=== PATIENT | male | born 1935 | race Caucasian/White ===

== ENCOUNTER → 2019-04-19 | Outpatient (CLI) | payer MEDICARE, OTHER ==
[~2019-04-19] MED LIST: ACE INHIBITOR; ARIP10 PO; ASPI81CH PO; ATOR10 PO; Aspir-Low81 MG PO; CHOL10002 PO; ERYT.5TO BOTHEYES; HCTZ PO; HYDCHL12.5 PO; LIPITOR; MULVITMIND PO; POLY500 PO; QUIN10 PO; QUINAPRIL PO; SULTRIDS PO
== END | disposition home or self-care (01) ==
LOC: LAB SHORT 17:14 → LAB EV 17:14
DX: L08.9 Local infection of the skin and subcutaneous tissue, unspecified (principal); L57.0 Actinic keratosis; L02.411 Cutaneous abscess of right axilla
CPT/HCPCS: 87070; 87077; 87147; 87186; 87205

== ENCOUNTER 2019-12-11 05:08 | Emergency (ER) | payer MEDICARE, OTHER ==
[~2019-12-11] VITALS: Ht 160 cm; Wt 53.5 kg
[2019-12-11 05:32] LABS: BASOPHILS ABSOLUTE AUTO 0.02 K/mm3 (0.00-0.23); BASOPHILS PERCENT AUTO 0 % (0-2); EOSINOPHILS ABSOLUTE AUTO 0.07 K/mm3 (0.00-0.68); EOSINOPHILS PERCENT AUTO 1 % (0-6); Hematocrit 38.2 % (37.0-53.0); IMMATURE GRAN ABSOLUTE AUTO 0.03 K/mm3 (0.00-0.10); IMMATURE GRAN PERCENT AUTO 0 % (0-1); LYMPHOCYTES ABSOLUTE AUTO 0.63 K/mm3 (0.84-5.20); LYMPHOCYTES PERCENT AUTO 8 % (21-46); MONOCYTES ABSOLUTE AUTO 1.25 K/mm3 (0.16-1.47); MONOCYTES PERCENT AUTO 15 % (4-13); Mean Corpuscular HGB 30.4 pg (26.0-34.0); Mean Corpuscular Volume 89 fL (80-100); Mean Platelet Volume 10.4 fL (9.1-12.4); NEUTROPHILS PERCENT AUTO 76 % (41-73); Platelet Count 159 K/mm3 (150-400); RDW Coefficient Variation 13.2 % (11.7-14.2); RDW Standard Deviation 43.1 fL (35.1-46.3); Red Blood Cell Count 4.28 M/mm3 (4.30-5.90)
[2019-12-11 05:52] LABS: Alanine Aminotransfer (ALT/SGP 25 U/L (12-78); Albumin, Blood 2.9 g/dL (3.4-5.0); Alk Phos 62 U/L (50-136); Anion Gap 8 mmol/L (6-16); Aspartate Aminotrans (AST/SGOT 30 U/L (12-37); Bilirubin, Total 0.7 mg/dL (0.1-1.0); Blood Urea Nitrogen 18 mg/dL (8-24); Bun/Creatinine Ratio 24.4 (12.0-20.0); CO2, Blood 24 mmol/L (21-32); Calcium, Blood 7.4 mg/dL (8.5-10.1); Chloride, Blood 99 mmol/L (98-108); Creatinine, Blood 0.74 mg/dL (0.60-1.20); Glomerular Filtration Rate >60 (60-); Glucose, Blood 81 mg/dL (70-99); Potassium, Blood 3.9 mmol/L (3.5-5.5); Sodium, Blood 131 mmol/L (136-145); Total Protein, Blood 5.9 g/dL (6.4-8.2); Troponin I <0.015 ng/mL (0.000-0.040)
[2019-12-11] MEDS ORDERED: AMLO5 PO (06:07)
== END 2019-12-11 08:10 | disposition home or self-care (01) ==
LOC: ER 05:08
PROVIDERS: Emergency Medicine
DX: R55 Syncope and collapse (principal); S00.83XA Contusion of other part of head, initial encounter; W18.30XA Fall on same level, unspecified, initial encounter; Z88.8 Allergy status to other drugs, medicaments and biological substances; Z88.2 Allergy status to sulfonamides; Z79.899 Other long term (current) drug therapy; Z79.82 Long term (current) use of aspirin; F32.9 Major depressive disorder, single episode, unspecified; I10 Essential (primary) hypertension; Y92.002 Bathroom of unspecified non-institutional (private) residence as the place of occurrence of the external cause
CPT/HCPCS: 70450; 71046; 80053; 83880; 84484; 85025; 93005; 93010; 99285-25

== ENCOUNTER 2020-01-11 07:37 | Emergency (ER) | payer MEDICARE, OTHER ==
[~2020-01-11] VITALS: Ht 175.3 cm; Wt 68.0 kg
[~2020-01-11 07:37] MED LIST changes: +AMLO5 PO
[2020-01-11] MEDS ORDERED: Aspirin EC81 MG PO (07:46)
[2020-01-11] MEDS ORDERED: QUIN10 PO (07:46)
== END 2020-01-11 09:52 | disposition home or self-care (01) ==
LOC: ER 07:37
DX: S80.01XA Contusion of right knee, initial encounter (principal); Z88.2 Allergy status to sulfonamides; W18.30XA Fall on same level, unspecified, initial encounter
CPT/HCPCS: 29505; 73564; 99283-25

== ENCOUNTER 2020-02-02 03:44 | Emergency (ER) | payer MEDICARE, OTHER ==
[~2020-02-02] VITALS: Ht 160 cm; Wt 532.5 kg
[~2020-02-02 03:44] MED LIST changes: -AMLO5 PO; +Accupril20 MG PO; +Amlodipine Bes2.5 MG PO; +Aspirin EC81 MG PO; -MULVITMIND PO
[2020-02-02 05:07] LABS: BASOPHILS ABSOLUTE AUTO 0.03 K/mm3 (0.00-0.23); BASOPHILS PERCENT AUTO 0 % (0-2); EOSINOPHILS ABSOLUTE AUTO 0.03 K/mm3 (0.00-0.68); EOSINOPHILS PERCENT AUTO 0 % (0-6); Hematocrit 38.1 % (37.0-53.0); Hemoglobin 13.2 g/dL (13.5-17.5); IMMATURE GRAN ABSOLUTE AUTO 0.03 K/mm3 (0.00-0.10); IMMATURE GRAN PERCENT AUTO 0 % (0-1); LYMPHOCYTES ABSOLUTE AUTO 0.61 K/mm3 (0.84-5.20); LYMPHOCYTES PERCENT AUTO 7 % (21-46); MONOCYTES ABSOLUTE AUTO 1.08 K/mm3 (0.16-1.47); MONOCYTES PERCENT AUTO 12 % (4-13); Mean Corpuscular HGB 30.8 pg (26.0-34.0); Mean Corpuscular HGB Conc 34.6 g/dL (31.5-36.5); Mean Corpuscular Volume 89 fL (80-100); Mean Platelet Volume 10.2 fL (9.1-12.4); NEUTROPHILS ABSOLUTE AUTO 7.59 K/mm3 (1.96-9.15); NEUTROPHILS PERCENT AUTO 81 % (41-73); Platelet Count 183 K/mm3 (150-400); RDW Coefficient Variation 13.5 % (11.7-14.2); RDW Standard Deviation 44.4 fL (35.1-46.3); Red Blood Cell Count 4.28 M/mm3 (4.30-5.90); White Blood Cell Count 9.37 K/mm3 (4.00-11.30)
[2020-02-02 05:18] LABS: Alanine Aminotransfer (ALT/SGP 29 U/L (12-78); Albumin, Blood 3.2 g/dL (3.4-5.0); Albumin/Globulin Ratio 1.1 (0.8-1.8); Alk Phos 53 U/L (50-136); Anion Gap 7 mmol/L (6-16); Aspartate Aminotrans (AST/SGOT 26 U/L (12-37); Bilirubin, Total 0.4 mg/dL (0.1-1.0); Blood Urea Nitrogen 26 mg/dL (8-24); Bun/Creatinine Ratio 31.7 (12.0-20.0); CO2, Blood 28 mmol/L (21-32); Calcium, Blood 8.2 mg/dL (8.5-10.1); Chloride, Blood 94 mmol/L (98-108); Creatinine, Blood 0.82 mg/dL (0.60-1.20); Globulin, Blood 2.9 g/dL (2.2-4.0); Glomerular Filtration Rate >60 (60-); Glucose, Blood 92 mg/dL (70-99); Sodium, Blood 129 mmol/L (136-145); Total Protein, Blood 6.1 g/dL (6.4-8.2); Troponin I <0.015 ng/mL (0.000-0.040)
[2020-02-02] MEDS ORDERED: Zantac150 MG PO (14:04)
[2020-02-02] MEDS ORDERED: THERA1 EACH PO (14:19)
== END 2020-02-02 10:40 | disposition home or self-care (01) ==
LOC: ER 03:44 → ERHOLD 03:45 → ER 03:45
PROVIDERS: Emergency Medicine
DX: R55 Syncope and collapse (principal); S06.9X9A Unspecified intracranial injury with loss of consciousness of unspecified duration, initial encounter; S00.03XA Contusion of scalp, initial encounter; Z23 Encounter for immunization; Z79.899 Other long term (current) drug therapy; Z79.82 Long term (current) use of aspirin; W18.30XA Fall on same level, unspecified, initial encounter
CPT/HCPCS: 70450; 71045; 72125; 73562-RT; 80053; 83690; 84484; 85025; 90686; 93005; 93010; 93971; 96360; 96361; 99284-25; J1650; J7030

== ENCOUNTER 2020-02-03 02:22 | Emergency (ER) | payer MEDICARE, OTHER ==
[~2020-02-03] VITALS: Ht 160 cm; Wt 53.1 kg
[~2020-02-03 02:22] MED LIST changes: +THERA1 EACH PO; +Zantac150 MG PO
[2020-02-03 05:18] LABS: BASOPHILS ABSOLUTE AUTO 0.01 K/mm3 (0.00-0.23); BASOPHILS PERCENT AUTO 0 % (0-2); EOSINOPHILS ABSOLUTE AUTO 0.01 K/mm3 (0.00-0.68); EOSINOPHILS PERCENT AUTO 0 % (0-6); Hematocrit 32.8 % (37.0-53.0); Hemoglobin 11.5 g/dL (13.5-17.5); IMMATURE GRAN ABSOLUTE AUTO 0.03 K/mm3 (0.00-0.10); IMMATURE GRAN PERCENT AUTO 0 % (0-1); LYMPHOCYTES ABSOLUTE AUTO 0.46 K/mm3 (0.84-5.20); LYMPHOCYTES PERCENT AUTO 6 % (21-46); MONOCYTES PERCENT AUTO 12 % (4-13); Mean Corpuscular HGB 30.7 pg (26.0-34.0); Mean Corpuscular HGB Conc 35.1 g/dL (31.5-36.5); Mean Corpuscular Volume 88 fL (80-100); Mean Platelet Volume 9.8 fL (9.1-12.4); NEUTROPHILS ABSOLUTE AUTO 6.75 K/mm3 (1.96-9.15); NEUTROPHILS PERCENT AUTO 82 % (41-73); Platelet Count 152 K/mm3 (150-400); RDW Coefficient Variation 13.3 % (11.7-14.2); RDW Standard Deviation 42.6 fL (35.1-46.3); Red Blood Cell Count 3.75 M/mm3 (4.30-5.90); White Blood Cell Count 8.26 K/mm3 (4.00-11.30)
[2020-02-03 05:36] LABS: Alanine Aminotransfer (ALT/SGP 28 U/L (12-78); Albumin/Globulin Ratio 1.1 (0.8-1.8); Alk Phos 54 U/L (50-136); Anion Gap 7 mmol/L (6-16); Aspartate Aminotrans (AST/SGOT 35 U/L (12-37); Bilirubin, Total 0.9 mg/dL (0.1-1.0); Blood Urea Nitrogen 15 mg/dL (8-24); CO2, Blood 27 mmol/L (21-32); Calcium, Blood 7.9 mg/dL (8.5-10.1); Chloride, Blood 95 mmol/L (98-108); Creatinine, Blood 0.68 mg/dL (0.60-1.20); Globulin, Blood 2.7 g/dL (2.2-4.0); Glomerular Filtration Rate >60 (60-); Glucose, Blood 90 mg/dL (70-99); Potassium, Blood 3.8 mmol/L (3.5-5.5); Sodium, Blood 129 mmol/L (136-145); Total Protein, Blood 5.7 g/dL (6.4-8.2)
--- NOTE | 2020-02-03 08:35 | NUR ---
ED Palliative Care Consult Spoke with Dr Ross and discussed case. Dr Ross reports Pt has multiple falls recently and would benefit from home health. Plan is to discharge back home. Arrived to Pt's room and Caremanager Isa assessing Pt. Pt reports living at home alone and has someone that comes in to help him clean the house. Pt reports having multiple falls recently. Pt reports having multiple falls in the same day. Pt is agreeable with receiving home health. Isa will arrange this service for Pt. Palliative Care will remain available.
== END 2020-02-03 09:27 | disposition home or self-care (01) ==
LOC: ER 02:22
PROVIDERS: Emergency Medicine
DX: S82.831A Other fracture of upper and lower end of right fibula, initial encounter for closed fracture (principal); W18.30XA Fall on same level, unspecified, initial encounter; Z88.8 Allergy status to other drugs, medicaments and biological substances; Z88.2 Allergy status to sulfonamides; Z79.899 Other long term (current) drug therapy; Z79.82 Long term (current) use of aspirin; I10 Essential (primary) hypertension; E78.5 Hyperlipidemia, unspecified
CPT/HCPCS: 73562-RT; 80053; 85025; 99284-25

== ENCOUNTER 2020-02-04 16:13 | Emergency (ER) | payer MEDICARE, OTHER ==
[~2020-02-04] VITALS: Ht 160 cm; Wt 49.9 kg
[2020-02-04 16:48] LABS: Source, Urine Clean Catch
[2020-02-04 16:51] LABS: Bilirubin, Urine Neg (Neg); Blood, Urine Neg (Neg); Glucose Qualitative, Urine Neg (Neg); Ketones, Urine Neg (Neg); Leukocyte Esterase, Urine Neg (Neg); Nitrite, Urine Neg (Neg); Protein, Urine Neg (Neg); Specific Gravity, Urine 1.015 (1.003-1.022); Urobilinogen, Urine NORM (Normal); pH, Urine 6.5 (5.0-8.0)
[2020-02-04 16:54] LABS: Appearance, Urine Clear (Clear); Color, Urine Yellow (P-Yellow)
== END 2020-02-04 19:34 | disposition home or self-care (01) ==
LOC: ER 16:13
PROVIDERS: Physician Assistant
DX: R53.1 Weakness (principal); R29.6 Repeated falls; I10 Essential (primary) hypertension; E78.5 Hyperlipidemia, unspecified
CPT/HCPCS: 81003; 99284

== ENCOUNTER 2020-02-15 09:12 | Day surgery (SDC) | payer MEDICARE, OTHER ==
[~2020-02-15] VITALS: Ht 160 cm; Wt 50.0 kg
--- NOTE | 2020-02-15 14:37 | NUR ---
02/15/20 1437 Geovanna Miles REPORT RECIEVED FROM NURSE HARDY AT 1400. PT COMPLAINED OF THE URGE TO URINATE. RN ASSISTED PT TO STAND TO ATTEMPT TO VOID. PT UNABLE TO VOID. DR DURBIN NOTIFIED. DR DURBIN REQUESTED THAT RN CALL DR MCCRACKEN TO OBTAIN ORDER FOR URINARY CATHETER. DR MCCRACKEN REQUESTED BACK CATHETER TO BE PLACED HERE AT THE [facility]. DR MCCRACKEN REQUESTED PT GO HOME WITH CATHETER AND FOLLOW UP WITH PCP. CATHETER PLACED BY RN. 900MLS OF CLEAR YELLOW URINE DRAINED. PT STATES NOW HE IS MUCH MORE COMFORTABLE. VSS. REPORT GIVEN TO [facility].SKL AT 1435.
== END 2020-02-15 14:55 | disposition home or self-care (01) ==
LOC: ORSCSDS 09:12
PROVIDERS: Orthopaedic Surgery
PROC: 0LQL0ZZ Repair Right Upper Leg Tendon, Open Approach (ICD-10-PCS; principal; 2020-02-15 10:15)
DX: S76.121A Laceration of right quadriceps muscle, fascia and tendon, initial encounter (principal); E78.5 Hyperlipidemia, unspecified; I10 Essential (primary) hypertension; Z79.82 Long term (current) use of aspirin; Z79.899 Other long term (current) drug therapy
CPT/HCPCS: C1713; J0330; J0690; J1100; J2405; J2704; J2795; J3010; J7120

== ENCOUNTER 2020-10-06 17:33 | Inpatient (IN) | payer MEDICARE, OTHER ==
[~2020-10-06] VITALS: Ht 170.2 cm; Wt 58.0 kg
[2020-10-06 18:32] LABS: BASOPHILS ABSOLUTE AUTO 0.03 K/mm3 (0.00-0.23); BASOPHILS PERCENT AUTO 1 % (0-2); EOSINOPHILS ABSOLUTE AUTO 0.17 K/mm3 (0.00-0.68); EOSINOPHILS PERCENT AUTO 3 % (0-6); Hematocrit 41.3 % (37.0-53.0); Hemoglobin 14.1 g/dL (13.5-17.5); IMMATURE GRAN ABSOLUTE AUTO 0.02 K/mm3 (0.00-0.10); IMMATURE GRAN PERCENT AUTO 0 % (0-1); LYMPHOCYTES ABSOLUTE AUTO 1.47 K/mm3 (0.84-5.20); LYMPHOCYTES PERCENT AUTO 24 % (21-46); MONOCYTES ABSOLUTE AUTO 1.03 K/mm3 (0.16-1.47); MONOCYTES PERCENT AUTO 17 % (4-13); Mean Corpuscular HGB 28.3 pg (26.0-34.0); Mean Corpuscular HGB Conc 34.1 g/dL (31.5-36.5); Mean Corpuscular Volume 83 fL (80-100); Mean Platelet Volume 9.5 fL (9.1-12.4); NEUTROPHILS ABSOLUTE AUTO 3.54 K/mm3 (1.96-9.15); NEUTROPHILS PERCENT AUTO 57 % (41-73); Platelet Count 194 K/mm3 (150-400); RDW Standard Deviation 42.4 fL (35.1-46.3); Red Blood Cell Count 4.98 M/mm3 (4.30-5.90); White Blood Cell Count 6.26 K/mm3 (4.00-11.30)
[2020-10-06 19:03] LABS: Alanine Aminotransfer (ALT/SGP 19 U/L (12-78); Albumin, Blood 3.5 g/dL (3.4-5.0); Albumin/Globulin Ratio 1.1 (0.8-1.8); Alk Phos 75 U/L (50-136); Anion Gap 10 mmol/L (6-16); Aspartate Aminotrans (AST/SGOT 20 U/L (12-37); Bilirubin, Total 0.3 mg/dL (0.1-1.0); Blood Urea Nitrogen 16 mg/dL (8-24); Bun/Creatinine Ratio 20.6 (12.0-20.0); CO2, Blood 23 mmol/L (21-32); Calcium, Blood 8.7 mg/dL (8.5-10.1); Chloride, Blood 97 mmol/L (98-108); Creatinine, Blood 0.78 mg/dL (0.60-1.20); Globulin, Blood 3.2 g/dL (2.2-4.0); Glomerular Filtration Rate >60 (60-); Glucose, Blood 115 mg/dL (70-99); Potassium, Blood 4.5 mmol/L (3.5-5.5); Sodium, Blood 130 mmol/L (136-145); Total Protein, Blood 6.7 g/dL (6.4-8.2); Troponin I <0.015 ng/mL (0.000-0.040)
[2020-10-07 04:21] LABS: BASOPHILS ABSOLUTE AUTO 0.02 K/mm3 (0.00-0.23); BASOPHILS PERCENT AUTO 0 % (0-2); EOSINOPHILS PERCENT AUTO 1 % (0-6); Hematocrit 36.7 % (37.0-53.0); Hemoglobin 12.8 g/dL (13.5-17.5); IMMATURE GRAN ABSOLUTE AUTO 0.03 K/mm3 (0.00-0.10); IMMATURE GRAN PERCENT AUTO 0 % (0-1); LYMPHOCYTES ABSOLUTE AUTO 1.02 K/mm3 (0.84-5.20); LYMPHOCYTES PERCENT AUTO 13 % (21-46); MONOCYTES ABSOLUTE AUTO 1.24 K/mm3 (0.16-1.47); MONOCYTES PERCENT AUTO 15 % (4-13); Mean Corpuscular HGB 28.7 pg (26.0-34.0); Mean Corpuscular HGB Conc 34.9 g/dL (31.5-36.5); Mean Corpuscular Volume 82 fL (80-100); Mean Platelet Volume 9.6 fL (9.1-12.4); NEUTROPHILS ABSOLUTE AUTO 5.67 K/mm3 (1.96-9.15); NEUTROPHILS PERCENT AUTO 70 % (41-73); Platelet Count 189 K/mm3 (150-400); RDW Standard Deviation 41.9 fL (35.1-46.3); Red Blood Cell Count 4.46 M/mm3 (4.30-5.90); White Blood Cell Count 8.08 K/mm3 (4.00-11.30)
[2020-10-07 04:49] LABS: Alanine Aminotransfer (ALT/SGP 14 U/L (12-78); Albumin, Blood 3.2 g/dL (3.4-5.0); Albumin/Globulin Ratio 1.1 (0.8-1.8); Alk Phos 70 U/L (50-136); Anion Gap 5 mmol/L (6-16); Aspartate Aminotrans (AST/SGOT 16 U/L (12-37); Bilirubin, Total 0.6 mg/dL (0.1-1.0); Blood Urea Nitrogen 10 mg/dL (8-24); Bun/Creatinine Ratio 14.2 (12.0-20.0); CO2, Blood 27 mmol/L (21-32); Calcium, Blood 8.5 mg/dL (8.5-10.1); Chloride, Blood 100 mmol/L (98-108); Creatinine, Blood 0.71 mg/dL (0.60-1.20); Globulin, Blood 2.8 g/dL (2.2-4.0); Glomerular Filtration Rate >60 (60-); Glucose, Blood 88 mg/dL (70-99); Sodium, Blood 132 mmol/L (136-145)
--- NOTE | 2020-10-07 04:59 | NUR ---
SUMMARY PT IS A&O X3, ON RA, NS INFUSING @ 100ML/HR PER EMAR. RESP UNLAOBORED, VSS. T HAS BEEN RESTING QUIETLY WITH NO COMPLAINTS OF PAIN SINCE ADMISSION, RIGHT KNEE IS SLIGHTLY RED, KNEE CAP APPEARS TO BE RAISED, SMALL RED "SCAB" NOTED, NO LEAKING OF FLUID OR BLEEDING NOTED, PT DENIES N/T TO LEG, HE IS ABLE TO MOVE WNL. HAS BEEN NOTIFIED BY THE ED PHYSICIAN FOR CONSULT. PT'S SISTER LEXIE HAS BEEN UPDATED ON HIS CONDITION THIS AM. PT IS RESTING AT THIS TIME, CALL LIGHT IN REACH, TM
--- NOTE | 2020-10-07 09:59 | NUR ---
REPORT TO KARO NARANJO ON SURGICAL FLOOR TO ASSUME CARE FOR IN HOUSE TRANSFER.
--- NOTE | 2020-10-07 10:21 | NUR ---
ASSUMED CARE OF PATIENT AT APROX 1015 FROM PCU. PT R KNEE WITH SMALL AMT REDNESS AND WHAT APPEARS/PT STATES TO BE A PUNCTURE HOLE IN R KNEE. PT DENIES PAIN AT THIS TIME.
[2020-10-07 11:20] LABS: Source, Urine Clean Catch
[2020-10-07 11:23] LABS: Appearance, Urine Clear (Clear); Bilirubin, Urine Neg (Neg); Blood, Urine Neg (Neg); Color, Urine Yellow (P-Yellow); Glucose Qualitative, Urine Neg (Neg); Ketones, Urine Neg (Neg); Leukocyte Esterase, Urine Neg (Neg); Nitrite, Urine Neg (Neg); Protein, Urine Neg (Neg); Urobilinogen, Urine NORM (Normal)
--- NOTE | 2020-10-08 04:55 | NUR ---
SHIFT SUMMARY PT HAS BEEN ALERT, FORGETFUL AT TIMES. HAS DENIED DIZZINESS/LIGHTHEADEDNESS OVERNIGHT. HAS BEEN UP TO BSC MULTIPLE TIMES AND HAD MULT SMALL BM'S. VOIDING USING URINAL. 2X ASSIST WITH FWW TO GET OUT OF BED. PLAN IS TO HAVE SURGERY ON R KNEE TODAY. PT HAS BEEN NPO SINCE MIDNIGHT. PT RESTING IN BED AT THIS TIME WITH CALL LIGHT IN PLACE.
--- NOTE | 2020-10-08 11:14 | NUR ---
PT BACK FROM PACU. DENIES PAIN. DENIES N&V, SAVAGE CLEAR LIQUIDS. S/P HWR & I.D. SURGICAL DRESSING/JUANA WRAP CDI; WBAT. STAND/PIVOT W/FWW AND MIN ASSIST TO CHAIR. VOIDING WELL, URINAL.
--- NOTE | 2020-10-08 15:30 | NUR ---
SHIFT SUMMARY PT A&OX4, VSS, S/P HW REPAIR & I&D, SURGICAL DRESSING/JUANA WRAP CDI, WBAT, DENIES N&T. PAIN AT TOLERABLE LEVEL. SAVAGE PO REG DIET, DENIES N&V. STAND PIVOT WITH FWW & GB, MOD ASSIST, TO CHAIR; SAT IN CHAIR FOR COUPLE HOURS, PREFERS TO BE IN BED SO HE CAN LAY BACK AND REPOSITION SELF EASILY. VOIDING WELL, USES URINAL W/ASSIST TO STAND. WILL REPORT TO ONCOMING NOC RN.
--- NOTE | 2020-10-09 05:55 | NUR ---
SHIFT SUMMARY PT A/O X3; FORGETFUL AT TIMES. BED ALARM ON. PT USING FWW WHEN UP. TOLERATING PO INTAKE AND VOIDING. PAIN MANAGED WITH TYLENOL PER ORDERS. JUANA WRAP TO R KNEE CDI, PULSES STRONG IN ALL EXT. PT USING TRAPEZE TO REPOSITION; REPOSITIONS SELF WELL IN BED. PT RESTING AT THIS TIME WITH CALL LIGHT IN REACH.
--- NOTE | 2020-10-09 09:47 | NUR ---
Patient gave verbal permission to student nurse Arpan Roach to provide care on 10/09/20
[2020-10-09] MEDS ORDERED: ACET500 PO (12:33)
[2020-10-09] MEDS ORDERED: DOCUZEN 8.6-501 EACH PO (12:35)
--- NOTE | 2020-10-09 14:45 | NUR ---
DISCHARGE ESCORTED OUT VIA TRANSPORTATION W/ WC. FORGETFUL BUT PLEASANT. DENIES PAIN. WOUND CARE PREFORMED BY INNA CRISTINA PRIOR TO DC.
--- NOTE | 2020-10-09 15:14 | NUR ---
10/09/20 1514 Chanelle Mccoy VERIFICATIONS: EDIT CHART.
== END 2020-10-09 14:50 | disposition home or self-care (01) | DRG 497 ==
LOC: ER 17:33 → PCU 19:50 → SURS 19:50 → ER 19:50 → PCU 21:30 → ER 22:12 → PCU 22:15 → SURS 10-07 10:15 → PCU 10-07 10:15 → SURS 10-08 14:39 → PCU 10-08 14:39 → SURS 10-09 14:50
PROVIDERS: Orthopaedic Surgery; Physician Assistant; ADMIT Internal Medicine
PROC: 0QPD04Z Removal of Internal Fixation Device from Right Patella, Open Approach (ICD-10-PCS; principal; 2020-10-08 09:00)
DX: T84.498A Other mechanical complication of other internal orthopedic devices, implants and grafts, initial encounter (principal); E86.0 Dehydration; I10 Essential (primary) hypertension; E78.5 Hyperlipidemia, unspecified; R00.1 Bradycardia, unspecified; Z85.21 Personal history of malignant neoplasm of larynx; Z79.82 Long term (current) use of aspirin
CPT/HCPCS: 36415; 70450; 71046; 73562-RT; 80053; 81003; 82947; 84484; 85025; 93005; 93010; 93306; 94760; 97110; 97116; 97161; 97530; 99285-25; A9270; J0690; J1100; J2250; J2370; J2405; J2704; J3010; J7030; U0004

== ENCOUNTER 2020-10-13 13:02 | Emergency (ER) | payer MEDICARE, OTHER ==
[~2020-10-13] VITALS: Ht 160 cm; Wt 56.7 kg
[~2020-10-13 13:02] MED LIST changes: +ACET500 PO; +DOCUZEN 8.6-501 EACH PO
== END 2020-10-13 14:23 | disposition home or self-care (01) ==
LOC: ER 13:02
DX: T81.33XA Disruption of traumatic injury wound repair, initial encounter (principal); I10 Essential (primary) hypertension; E78.5 Hyperlipidemia, unspecified; Z88.8 Allergy status to other drugs, medicaments and biological substances; Z88.7 Allergy status to serum and vaccine; Z88.2 Allergy status to sulfonamides; Z79.82 Long term (current) use of aspirin; Z79.899 Other long term (current) drug therapy; W20.8XXA Other cause of strike by thrown, projected or falling object, initial encounter; Y84.8 Other medical procedures as the cause of abnormal reaction of the patient, or of later complication, without mention of misadventure at the time of the procedure
CPT/HCPCS: 99283

== ENCOUNTER 2020-10-16 16:50 | Observation (INO) | payer MEDICARE, OTHER ==
[~2020-10-16] VITALS: Ht 160 cm; Wt 51.8 kg
[2020-10-16 17:24] LABS: BASOPHILS ABSOLUTE AUTO 0.05 K/mm3 (0.00-0.23); BASOPHILS PERCENT AUTO 1 % (0-2); EOSINOPHILS ABSOLUTE AUTO 0.23 K/mm3 (0.00-0.68); EOSINOPHILS PERCENT AUTO 2 % (0-6); Hematocrit 37.5 % (37.0-53.0); Hemoglobin 13.4 g/dL (13.5-17.5); IMMATURE GRAN ABSOLUTE AUTO 0.08 K/mm3 (0.00-0.10); IMMATURE GRAN PERCENT AUTO 1 % (0-1); LYMPHOCYTES ABSOLUTE AUTO 1.15 K/mm3 (0.84-5.20); LYMPHOCYTES PERCENT AUTO 12 % (21-46); MONOCYTES ABSOLUTE AUTO 1.55 K/mm3 (0.16-1.47); MONOCYTES PERCENT AUTO 17 % (4-13); Mean Corpuscular HGB 28.9 pg (26.0-34.0); Mean Corpuscular HGB Conc 35.7 g/dL (31.5-36.5); Mean Corpuscular Volume 81 fL (80-100); Mean Platelet Volume 9.3 fL (9.1-12.4); NEUTROPHILS ABSOLUTE AUTO 6.36 K/mm3 (1.96-9.15); NEUTROPHILS PERCENT AUTO 68 % (41-73); Platelet Count 275 K/mm3 (150-400); RDW Coefficient Variation 13.5 % (11.7-14.2); RDW Standard Deviation 39.7 fL (35.1-46.3); Red Blood Cell Count 4.64 M/mm3 (4.30-5.90); White Blood Cell Count 9.42 K/mm3 (4.00-11.30)
[2020-10-16 17:29] LABS: Source, Urine Clean Catch
[2020-10-16 17:45] LABS: Appearance, Urine Clear (Clear); Bilirubin, Urine Neg (Neg); Blood, Urine Neg (Neg); Color, Urine Yellow (P-Yellow); Glucose Qualitative, Urine Neg (Neg); Ketones, Urine Neg (Neg); Leukocyte Esterase, Urine Neg (Neg); Nitrite, Urine Neg (Neg); Protein, Urine Neg (Neg); Urobilinogen, Urine NORM (Normal)
[2020-10-16 17:55] LABS: Alanine Aminotransfer (ALT/SGP 26 U/L (12-78); Albumin, Blood 3.3 g/dL (3.4-5.0); Alk Phos 75 U/L (50-136); Anion Gap 7 mmol/L (6-16); Aspartate Aminotrans (AST/SGOT 27 U/L (12-37); Bilirubin, Total 0.6 mg/dL (0.1-1.0); Blood Urea Nitrogen 10 mg/dL (8-24); Bun/Creatinine Ratio 14.1 (12.0-20.0); CO2, Blood 28 mmol/L (21-32); Calcium, Blood 8.6 mg/dL (8.5-10.1); Chloride, Blood 87 mmol/L (98-108); Creatinine, Blood 0.71 mg/dL (0.60-1.20); Globulin, Blood 3.3 g/dL (2.2-4.0); Glomerular Filtration Rate >60 (60-); Glucose, Blood 93 mg/dL (70-99); Potassium, Blood 4.9 mmol/L (3.5-5.5); Sodium, Blood 122 mmol/L (136-145); Total Protein, Blood 6.6 g/dL (6.4-8.2); Troponin I <0.015 ng/mL (0.000-0.040)
[2020-10-16] MEDS ORDERED: CARVEDILOL12.5 MG PO (18:45)
[2020-10-16] MEDS ORDERED: ATOR10 PO (18:45)
[2020-10-16] MEDS ORDERED: ASPI325EC PO (18:46)
[2020-10-16] MEDS ORDERED: DOC250 PO (18:46)
[2020-10-16] MEDS ORDERED: Quinapril HCl20 MG PO (18:46)
[2020-10-16] MEDS ORDERED: METAMUCIL POWD575 GM PO (18:47)
[2020-10-16 20:20] LABS: Anion Gap 7 mmol/L (6-16); Blood Urea Nitrogen 9 mg/dL (8-24); Bun/Creatinine Ratio 13.4 (12.0-20.0); CO2, Blood 28 mmol/L (21-32); Calcium, Blood 8.3 mg/dL (8.5-10.1); Chloride, Blood 91 mmol/L (98-108); Creatinine, Blood 0.67 mg/dL (0.60-1.20); Glomerular Filtration Rate >60 (60-); Glucose, Blood 88 mg/dL (70-99); Potassium, Blood 4.2 mmol/L (3.5-5.5); Sodium, Blood 126 mmol/L (136-145)
[2020-10-17 05:30] LABS: BASOPHILS ABSOLUTE AUTO 0.04 K/mm3 (0.00-0.23); BASOPHILS PERCENT AUTO 0 % (0-2); EOSINOPHILS ABSOLUTE AUTO 0.21 K/mm3 (0.00-0.68); EOSINOPHILS PERCENT AUTO 2 % (0-6); Hemoglobin 12.3 g/dL (13.5-17.5); IMMATURE GRAN ABSOLUTE AUTO 0.06 K/mm3 (0.00-0.10); IMMATURE GRAN PERCENT AUTO 1 % (0-1); LYMPHOCYTES ABSOLUTE AUTO 1.08 K/mm3 (0.84-5.20); LYMPHOCYTES PERCENT AUTO 12 % (21-46); MONOCYTES ABSOLUTE AUTO 1.53 K/mm3 (0.16-1.47); MONOCYTES PERCENT AUTO 16 % (4-13); Mean Corpuscular HGB 28.4 pg (26.0-34.0); Mean Corpuscular HGB Conc 35.1 g/dL (31.5-36.5); Mean Corpuscular Volume 81 fL (80-100); Mean Platelet Volume 9.7 fL (9.1-12.4); NEUTROPHILS ABSOLUTE AUTO 6.39 K/mm3 (1.96-9.15); NEUTROPHILS PERCENT AUTO 69 % (41-73); Platelet Count 253 K/mm3 (150-400); RDW Coefficient Variation 13.4 % (11.7-14.2); RDW Standard Deviation 39.9 fL (35.1-46.3); Red Blood Cell Count 4.33 M/mm3 (4.30-5.90); White Blood Cell Count 9.31 K/mm3 (4.00-11.30)
[2020-10-17 06:08] LABS: Alanine Aminotransfer (ALT/SGP 24 U/L (12-78); Albumin, Blood 2.9 g/dL (3.4-5.0); Alk Phos 69 U/L (50-136); Anion Gap 7 mmol/L (6-16); Aspartate Aminotrans (AST/SGOT 29 U/L (12-37); Bilirubin, Total 0.7 mg/dL (0.1-1.0); Blood Urea Nitrogen 8 mg/dL (8-24); CO2, Blood 24 mmol/L (21-32); Calcium, Blood 8.2 mg/dL (8.5-10.1); Chloride, Blood 95 mmol/L (98-108); Creatinine, Blood 0.62 mg/dL (0.60-1.20); Glomerular Filtration Rate >60 (60-); Glucose, Blood 87 mg/dL (70-99); Potassium, Blood 4.1 mmol/L (3.5-5.5); Sodium, Blood 126 mmol/L (136-145); Total Protein, Blood 5.9 g/dL (6.4-8.2)
--- NOTE | 2020-10-17 06:21 | NUR ---
SHIFT SUMMARY- PT. NEW ADMIT FROM ED. ALERT W/INTERMITTENT CONFUSION. PT. RESTED MOST OF THE NIGHT, NO APPARENT DISTRESS NOTED. DENIED ANY NEEDS DURING THE NIGHT AND NO COMPLAINTS OF PAIN. PIC TAKEN OF WOUND TO RT KNEE AND COVERED WITH MEPILEX, PT. TOLERATED WELL. VSS. CALL LIGHT WITHIN REACH, SIDE RAILS UPX2, AND BED ALARM ON FOR SAFETY. WILL CONT TO MONITOR.
[2020-10-17 11:53] LABS: Anion Gap 5 mmol/L (6-16); Blood Urea Nitrogen 7 mg/dL (8-24); CO2, Blood 28 mmol/L (21-32); Calcium, Blood 7.8 mg/dL (8.5-10.1); Chloride, Blood 94 mmol/L (98-108); Creatinine, Blood 0.63 mg/dL (0.60-1.20); Glomerular Filtration Rate >60 (60-); Glucose, Blood 119 mg/dL (70-99); Potassium, Blood 3.7 mmol/L (3.5-5.5); Sodium, Blood 127 mmol/L (136-145)
[2020-10-17 14:25] LABS: Influenza A, PCR Negative (NEGATIVE); Influenza B, PCR Negative (NEGATIVE); Resp Syncytial Virus, PCR Negative (NEGATIVE); SARS-Cov-2 (COVID-19) PCR, MMC Negative (NEGATIVE)
--- NOTE | 2020-10-17 16:19 | NUR ---
DISCHARGE DR TA IN TO SEE PT THIS AM, STATE OK FOR D/C HOME TO [facility] TODAY. STATE PT HAS CHR LOW NA+, ORDER 1500ML FREE WATER RESTRICTION @ HOME. CONTACTED NURSE @ [facility] FOR REPORT & NEED TO ENCOURAGE FR. EDUCATED PT. ORDER PT/OT [facility], RESULTS SENT TO [facility] R/T POSSIBLE NEED FOR HIGHER LEVEL OF CARE. COVID19 NEGATIVE. IV D/C INTACT. WOUND CARE TO R KNEE PROVIDED. PT WILL HAVE [facility] FOLLOW. CREDIT CONTROLLER ARRANGE W/C VAN TRANSPORT. PT IS PLEASANT, APPRECIATIVE HOWEVER VERY FORGETFUL.
== END 2020-10-17 15:53 | disposition home health service (06) ==
LOC: ER 16:50 → MEDS 16:51
PROVIDERS: Emergency Medicine; Internal Medicine; ADMIT Internal Medicine
DX: F03.90 Unspecified dementia, unspecified severity, without behavioral disturbance, psychotic disturbance, mood disturbance, and anxiety (principal); E87.1 Hypo-osmolality and hyponatremia; I10 Essential (primary) hypertension; E78.5 Hyperlipidemia, unspecified; K59.00 Constipation, unspecified; R05 Cough; F32.9 Major depressive disorder, single episode, unspecified; Z88.2 Allergy status to sulfonamides; Z88.7 Allergy status to serum and vaccine; Z88.8 Allergy status to other drugs, medicaments and biological substances; Z79.82 Long term (current) use of aspirin; Z79.899 Other long term (current) drug therapy; Z85.21 Personal history of malignant neoplasm of larynx; Z20.828 Contact with and (suspected) exposure to other viral communicable diseases; Z23 Encounter for immunization; Z86.73 Personal history of transient ischemic attack (TIA), and cerebral infarction without residual deficits; Z51.5 Encounter for palliative care
CPT/HCPCS: 0241U; 36415; 71046; 80048; 80053; 81003; 83880; 84484; 85025; 93005; 93010; 96360; 96372; 97129; 97162; 97165; 97535; 99285-25; G0378; J1650; J7030

== ENCOUNTER 2020-10-31 15:25 | Emergency (ER) | payer MEDICARE, OTHER ==
[~2020-10-31] VITALS: Ht 157.5 cm; Wt 54.4 kg
[~2020-10-31 15:25] MED LIST changes: +ASPI325EC PO; +CARVEDILOL12.5 MG PO; +DOC250 PO; +METAMUCIL POWD575 GM PO
[2020-10-31 16:27] LABS: BASOPHILS ABSOLUTE AUTO 0.05 K/mm3 (0.00-0.23); BASOPHILS PERCENT AUTO 1 % (0-2); EOSINOPHILS ABSOLUTE AUTO 0.12 K/mm3 (0.00-0.68); EOSINOPHILS PERCENT AUTO 2 % (0-6); Hemoglobin 12.6 g/dL (13.5-17.5); IMMATURE GRAN ABSOLUTE AUTO 0.03 K/mm3 (0.00-0.10); IMMATURE GRAN PERCENT AUTO 0 % (0-1); LYMPHOCYTES ABSOLUTE AUTO 1.16 K/mm3 (0.84-5.20); LYMPHOCYTES PERCENT AUTO 15 % (21-46); MONOCYTES ABSOLUTE AUTO 1.07 K/mm3 (0.16-1.47); MONOCYTES PERCENT AUTO 14 % (4-13); Mean Corpuscular HGB 28.8 pg (26.0-34.0); Mean Corpuscular Volume 82 fL (80-100); Mean Platelet Volume 8.6 fL (9.1-12.4); NEUTROPHILS ABSOLUTE AUTO 5.23 K/mm3 (1.96-9.15); NEUTROPHILS PERCENT AUTO 68 % (41-73); Platelet Count 287 K/mm3 (150-400); RDW Coefficient Variation 13.8 % (11.7-14.2); RDW Standard Deviation 41.2 fL (35.1-46.3); Red Blood Cell Count 4.37 M/mm3 (4.30-5.90); White Blood Cell Count 7.66 K/mm3 (4.00-11.30)
[2020-10-31 16:55] LABS: Alanine Aminotransfer (ALT/SGP 18 U/L (12-78); Albumin/Globulin Ratio 0.9 (0.8-1.8); Alk Phos 73 U/L (50-136); Anion Gap 7 mmol/L (6-16); Aspartate Aminotrans (AST/SGOT 20 U/L (12-37); Bilirubin, Total 0.4 mg/dL (0.1-1.0); Blood Urea Nitrogen 10 mg/dL (8-24); Bun/Creatinine Ratio 14.3 (12.0-20.0); CO2, Blood 26 mmol/L (21-32); Calcium, Blood 8.4 mg/dL (8.5-10.1); Chloride, Blood 91 mmol/L (98-108); Globulin, Blood 3.5 g/dL (2.2-4.0); Glomerular Filtration Rate >60 (60-); Glucose, Blood 100 mg/dL (70-99); Potassium, Blood 4.4 mmol/L (3.5-5.5); Sodium, Blood 124 mmol/L (136-145); Total Protein, Blood 6.5 g/dL (6.4-8.2)
[2020-10-31 18:46] LABS: Source, Urine Clean Catch
[2020-10-31 18:48] LABS: Appearance, Urine Clear (Clear); Bilirubin, Urine Neg (Neg); Blood, Urine 5+ (Neg); Color, Urine Yellow (P-Yellow); Glucose Qualitative, Urine Neg (Neg); Ketones, Urine Neg (Neg); Leukocyte Esterase, Urine 3+ (Neg); Nitrite, Urine Neg (Neg); Protein, Urine Neg (Neg); Urobilinogen, Urine NORM (Normal)
[2020-10-31 19:13] LABS: Bacteria Many /hpf; Red Blood Cells, Urine 0-2 /hpf (0-2); Squamous Epithelial Cells Not Seen /hpf (Few); White Blood Cells, Urine 25-50 /hpf (0-5)
[2020-10-31] MEDS ORDERED: Norvasc2.5 MG PO (19:32)
[2020-10-31] MEDS ORDERED: KEFLEX500 MG PO (20:11)
== END 2020-10-31 20:30 | disposition home or self-care (01) ==
LOC: ER 15:25
PROVIDERS: Physician Assistant
DX: N39.0 Urinary tract infection, site not specified (principal); I10 Essential (primary) hypertension; E78.5 Hyperlipidemia, unspecified; Z79.899 Other long term (current) drug therapy; Z79.82 Long term (current) use of aspirin; Z88.7 Allergy status to serum and vaccine; Z88.8 Allergy status to other drugs, medicaments and biological substances; Z88.2 Allergy status to sulfonamides
CPT/HCPCS: 36415; 80053; 81001; 85025; 87086; 99283; A9270-GY

== ENCOUNTER 2020-11-07 00:24 | Day surgery (SDC) | payer MEDICARE, OTHER ==
[~2020-11-07 00:24] MED LIST changes: +KEFLEX500 MG PO; +Norvasc2.5 MG PO
== END 2020-11-07 22:34 | disposition home or self-care (01) ==
LOC: WOUND 00:24
DX: T81.31XA Disruption of external operation (surgical) wound, not elsewhere classified, initial encounter (principal); I96 Gangrene, not elsewhere classified; I87.2 Venous insufficiency (chronic) (peripheral); I10 Essential (primary) hypertension; H26.9 Unspecified cataract; M19.90 Unspecified osteoarthritis, unspecified site; E78.5 Hyperlipidemia, unspecified; F32.9 Major depressive disorder, single episode, unspecified; Z88.7 Allergy status to serum and vaccine; Z88.8 Allergy status to other drugs, medicaments and biological substances; Z79.82 Long term (current) use of aspirin; Z79.899 Other long term (current) drug therapy; Y83.8 Other surgical procedures as the cause of abnormal reaction of the patient, or of later complication, without mention of misadventure at the time of the procedure
CPT/HCPCS: G0463

== ENCOUNTER 2020-11-16 00:13 | Day surgery (SDC) | payer MEDICARE, OTHER | END 2020-11-16 23:02 | disposition home or self-care (01) | LOC: WOUND 00:13 | DX: T81.31XD Disruption of external operation (surgical) wound, not elsewhere classified, subsequent encounter (principal); I96 Gangrene, not elsewhere classified; I10 Essential (primary) hypertension; M19.90 Unspecified osteoarthritis, unspecified site; H26.9 Unspecified cataract; Z88.2 Allergy status to sulfonamides; Z88.7 Allergy status to serum and vaccine; Z88.8 Allergy status to other drugs, medicaments and biological substances; Z79.82 Long term (current) use of aspirin; Z79.899 Other long term (current) drug therapy; Y83.8 Other surgical procedures as the cause of abnormal reaction of the patient, or of later complication, without mention of misadventure at the time of the procedure | CPT/HCPCS: G0463 ==

== ENCOUNTER 2020-11-30 00:48 | Day surgery (SDC) | payer MEDICARE, OTHER | END 2020-11-30 23:19 | disposition home or self-care (01) | LOC: WOUND 00:48 | DX: S81.001A Unspecified open wound, right knee, initial encounter (principal); S81.001S Unspecified open wound, right knee, sequela; M79.5 Residual foreign body in soft tissue; I87.2 Venous insufficiency (chronic) (peripheral); I73.9 Peripheral vascular disease, unspecified; Z79.899 Other long term (current) drug therapy; Z79.82 Long term (current) use of aspirin; Z20.828 Contact with and (suspected) exposure to other viral communicable diseases; Z88.2 Allergy status to sulfonamides; Z88.7 Allergy status to serum and vaccine; Z79.2 Long term (current) use of antibiotics; Z88.8 Allergy status to other drugs, medicaments and biological substances; X58.XXXA Exposure to other specified factors, initial encounter; X58.XXXD Exposure to other specified factors, subsequent encounter | CPT/HCPCS: G0463 ==

== ENCOUNTER 2020-12-14 00:15 | Day surgery (SDC) | payer MEDICARE, OTHER | END 2020-12-14 23:50 | disposition home or self-care (01) | LOC: WOUND 00:15 | DX: T81.31XD Disruption of external operation (surgical) wound, not elsewhere classified, subsequent encounter (principal); I96 Gangrene, not elsewhere classified; I87.2 Venous insufficiency (chronic) (peripheral); H26.9 Unspecified cataract; I10 Essential (primary) hypertension; M19.90 Unspecified osteoarthritis, unspecified site; Z88.7 Allergy status to serum and vaccine; Z88.8 Allergy status to other drugs, medicaments and biological substances; Z88.2 Allergy status to sulfonamides; Z79.82 Long term (current) use of aspirin; Z79.899 Other long term (current) drug therapy; Z20.822 Contact with and (suspected) exposure to COVID-19; Y83.8 Other surgical procedures as the cause of abnormal reaction of the patient, or of later complication, without mention of misadventure at the time of the procedure | CPT/HCPCS: A9270; G0463 ==

== ENCOUNTER 2020-12-27 09:19 | Emergency (ER) | payer MEDICARE, OTHER ==
[~2020-12-27] VITALS: Ht 160 cm; Wt 54.4 kg
[2020-12-27] MEDS ORDERED: CARVEDILOL12.5 MG PO (09:30)
[2020-12-27 10:13] LABS: BASOPHILS ABSOLUTE AUTO 0.02 K/mm3 (0.00-0.23); BASOPHILS PERCENT AUTO 0 % (0-2); EOSINOPHILS ABSOLUTE AUTO 0.04 K/mm3 (0.00-0.68); EOSINOPHILS PERCENT AUTO 1 % (0-6); Hemoglobin 14.2 g/dL (13.5-17.5); IMMATURE GRAN ABSOLUTE AUTO 0.02 K/mm3 (0.00-0.10); IMMATURE GRAN PERCENT AUTO 0 % (0-1); LYMPHOCYTES PERCENT AUTO 10 % (21-46); MONOCYTES ABSOLUTE AUTO 1.38 K/mm3 (0.16-1.47); MONOCYTES PERCENT AUTO 17 % (4-13); Mean Corpuscular HGB 29.5 pg (26.0-34.0); Mean Corpuscular HGB Conc 34.6 g/dL (31.5-36.5); Mean Corpuscular Volume 85 fL (80-100); Mean Platelet Volume 9.5 fL (9.1-12.4); NEUTROPHILS ABSOLUTE AUTO 5.99 K/mm3 (1.96-9.15); NEUTROPHILS PERCENT AUTO 73 % (41-73); Platelet Count 197 K/mm3 (150-400); RDW Coefficient Variation 14.5 % (11.7-14.2); RDW Standard Deviation 45.1 fL (35.1-46.3); Red Blood Cell Count 4.81 M/mm3 (4.30-5.90); White Blood Cell Count 8.25 K/mm3 (4.00-11.30)
[2020-12-27 10:34] LABS: Alanine Aminotransfer (ALT/SGP 20 U/L (12-78); Albumin, Blood 3.7 g/dL (3.4-5.0); Albumin/Globulin Ratio 1.2 (0.8-1.8); Alk Phos 81 U/L (50-136); Anion Gap 8 mmol/L (6-16); Aspartate Aminotrans (AST/SGOT 18 U/L (12-37); Bilirubin, Total 0.9 mg/dL (0.1-1.0); Blood Urea Nitrogen 13 mg/dL (8-24); Bun/Creatinine Ratio 20.2 (12.0-20.0); CO2, Blood 28 mmol/L (21-32); Calcium, Blood 8.5 mg/dL (8.5-10.1); Chloride, Blood 90 mmol/L (98-108); Creatinine, Blood 0.64 mg/dL (0.60-1.20); Globulin, Blood 3.1 g/dL (2.2-4.0); Glomerular Filtration Rate >60 (60-); Glucose, Blood 93 mg/dL (70-99); Potassium, Blood 3.7 mmol/L (3.5-5.5); Sodium, Blood 126 mmol/L (136-145); Total Protein, Blood 6.8 g/dL (6.4-8.2); Troponin I <0.015 ng/mL (0.000-0.040)
[2020-12-27 11:51] LABS: Source, Urine Clean Catch
[2020-12-27 11:54] LABS: Appearance, Urine Clear (Clear); Bilirubin, Urine Neg (Neg); Blood, Urine Neg (Neg); Color, Urine Yellow (P-Yellow); Glucose Qualitative, Urine Neg (Neg); Ketones, Urine 2+ (Neg); Leukocyte Esterase, Urine Neg (Neg); Nitrite, Urine Neg (Neg); Protein, Urine Neg (Neg); Urobilinogen, Urine NORM (Normal)
[2020-12-27] MEDS ORDERED: AMOCLA875 PO (14:04)
[2020-12-27] MEDS ORDERED: AZIT250 PO (14:04)
== END 2020-12-27 14:30 | disposition home or self-care (01) ==
LOC: ER 09:19
PROVIDERS: Physician Assistant
DX: J18.9 Pneumonia, unspecified organism (principal); I10 Essential (primary) hypertension; E78.5 Hyperlipidemia, unspecified; Z79.82 Long term (current) use of aspirin; Z79.899 Other long term (current) drug therapy
CPT/HCPCS: 36415; 70450; 71045; 80053; 81003; 84484; 85025; 93005; 93010; 99285-25; J7030

== ENCOUNTER 2020-12-28 08:09 | Emergency (ER) | payer MEDICARE, OTHER ==
[~2020-12-28] VITALS: Ht 172.7 cm; Wt 63.5 kg
[~2020-12-28 08:09] MED LIST changes: +AMOCLA875 PO; +AZIT250 PO
[2020-12-28 09:39] LABS: BASOPHILS ABSOLUTE AUTO 0.02 K/mm3 (0.00-0.23); BASOPHILS PERCENT AUTO 0 % (0-2); EOSINOPHILS ABSOLUTE AUTO 0.03 K/mm3 (0.00-0.68); EOSINOPHILS PERCENT AUTO 0 % (0-6); Hematocrit 40.2 % (37.0-53.0); Hemoglobin 13.9 g/dL (13.5-17.5); IMMATURE GRAN ABSOLUTE AUTO 0.03 K/mm3 (0.00-0.10); IMMATURE GRAN PERCENT AUTO 0 % (0-1); LYMPHOCYTES ABSOLUTE AUTO 0.77 K/mm3 (0.84-5.20); LYMPHOCYTES PERCENT AUTO 11 % (21-46); MONOCYTES ABSOLUTE AUTO 1.01 K/mm3 (0.16-1.47); MONOCYTES PERCENT AUTO 14 % (4-13); Mean Corpuscular HGB 29.2 pg (26.0-34.0); Mean Corpuscular HGB Conc 34.6 g/dL (31.5-36.5); Mean Corpuscular Volume 85 fL (80-100); NEUTROPHILS ABSOLUTE AUTO 5.18 K/mm3 (1.96-9.15); NEUTROPHILS PERCENT AUTO 74 % (41-73); Platelet Count 201 K/mm3 (150-400); RDW Coefficient Variation 14.4 % (11.7-14.2); RDW Standard Deviation 44.3 fL (35.1-46.3); Red Blood Cell Count 4.76 M/mm3 (4.30-5.90); White Blood Cell Count 7.04 K/mm3 (4.00-11.30)
== END 2020-12-28 12:30 | disposition home or self-care (01) ==
LOC: ER 08:09
PROVIDERS: Emergency Medicine
DX: M25.562 Pain in left knee (principal); F03.90 Unspecified dementia, unspecified severity, without behavioral disturbance, psychotic disturbance, mood disturbance, and anxiety; I10 Essential (primary) hypertension; E78.5 Hyperlipidemia, unspecified; Z79.899 Other long term (current) drug therapy; Z79.82 Long term (current) use of aspirin; Z88.2 Allergy status to sulfonamides; Z88.8 Allergy status to other drugs, medicaments and biological substances
CPT/HCPCS: 29505; 73562-LT; 84484; 85025; 93005; 93010; 96374-59; 96375-59; 99284-25; J1170; J2310; J2405; J7030

== ENCOUNTER 2021-01-02 00:19 | Day surgery (SDC) | payer MEDICARE, OTHER | END 2021-01-02 23:45 | LOC: WOUND 00:19 | DX: S81.001D Unspecified open wound, right knee, subsequent encounter (principal); I96 Gangrene, not elsewhere classified; I87.2 Venous insufficiency (chronic) (peripheral); H26.9 Unspecified cataract; I10 Essential (primary) hypertension; M19.90 Unspecified osteoarthritis, unspecified site; Y83.8 Other surgical procedures as the cause of abnormal reaction of the patient, or of later complication, without mention of misadventure at the time of the procedure; Z88.7 Allergy status to serum and vaccine; Z88.8 Allergy status to other drugs, medicaments and biological substances; Z88.2 Allergy status to sulfonamides; Z79.82 Long term (current) use of aspirin; Z79.899 Other long term (current) drug therapy | CPT/HCPCS: G0463 ==

== ENCOUNTER 2021-01-16 01:08 | Day surgery (SDC) | payer MEDICARE, OTHER | END 2021-01-16 23:40 | disposition home or self-care (01) | LOC: WOUND 01:08 | DX: S81.001D Unspecified open wound, right knee, subsequent encounter (principal); I87.2 Venous insufficiency (chronic) (peripheral); I73.9 Peripheral vascular disease, unspecified; X58.XXXD Exposure to other specified factors, subsequent encounter | CPT/HCPCS: A9270; G0463 ==

== ENCOUNTER 2021-01-16 09:15 | Emergency (ER) | payer MEDICARE, OTHER ==
[~2021-01-16] VITALS: Ht 167.6 cm; Wt 55.8 kg
[2021-01-16 09:51] LABS: BASOPHILS ABSOLUTE AUTO 0.05 K/mm3 (0.00-0.23); BASOPHILS PERCENT AUTO 1 % (0-2); EOSINOPHILS ABSOLUTE AUTO 0.21 K/mm3 (0.00-0.68); EOSINOPHILS PERCENT AUTO 3 % (0-6); Hemoglobin 13.1 g/dL (13.5-17.5); IMMATURE GRAN ABSOLUTE AUTO 0.04 K/mm3 (0.00-0.10); IMMATURE GRAN PERCENT AUTO 1 % (0-1); LYMPHOCYTES ABSOLUTE AUTO 0.85 K/mm3 (0.84-5.20); LYMPHOCYTES PERCENT AUTO 13 % (21-46); MONOCYTES ABSOLUTE AUTO 1.25 K/mm3 (0.16-1.47); MONOCYTES PERCENT AUTO 19 % (4-13); Mean Corpuscular HGB 28.9 pg (26.0-34.0); Mean Corpuscular HGB Conc 34.5 g/dL (31.5-36.5); Mean Corpuscular Volume 84 fL (80-100); NEUTROPHILS ABSOLUTE AUTO 4.12 K/mm3 (1.96-9.15); NEUTROPHILS PERCENT AUTO 63 % (41-73); Platelet Count 254 K/mm3 (150-400); RDW Coefficient Variation 13.9 % (11.7-14.2); RDW Standard Deviation 42.8 fL (35.1-46.3); Red Blood Cell Count 4.53 M/mm3 (4.30-5.90); White Blood Cell Count 6.52 K/mm3 (4.00-11.30)
[2021-01-16 10:09] LABS: Alanine Aminotransfer (ALT/SGP 21 U/L (12-78); Albumin, Blood 2.9 g/dL (3.4-5.0); Albumin/Globulin Ratio 0.9 (0.8-1.8); Alk Phos 69 U/L (50-136); Anion Gap 8 mmol/L (6-16); Aspartate Aminotrans (AST/SGOT 21 U/L (12-37); Bilirubin, Total 0.5 mg/dL (0.1-1.0); Blood Urea Nitrogen 11 mg/dL (8-24); Bun/Creatinine Ratio 13.3 (12.0-20.0); CO2, Blood 24 mmol/L (21-32); Calcium, Blood 8.2 mg/dL (8.5-10.1); Chloride, Blood 94 mmol/L (98-108); Creatinine, Blood 0.83 mg/dL (0.60-1.20); Globulin, Blood 3.2 g/dL (2.2-4.0); Glomerular Filtration Rate >60 (60-); Glucose, Blood 80 mg/dL (70-99); Potassium, Blood 4.3 mmol/L (3.5-5.5); Sodium, Blood 126 mmol/L (136-145); Total Protein, Blood 6.1 g/dL (6.4-8.2)
== END 2021-01-16 10:38 | disposition home or self-care (01) ==
LOC: ER 09:15
PROVIDERS: Physician Assistant
DX: I95.9 Hypotension, unspecified (principal); I10 Essential (primary) hypertension; E78.5 Hyperlipidemia, unspecified; Z88.8 Allergy status to other drugs, medicaments and biological substances; Z88.7 Allergy status to serum and vaccine; Z88.2 Allergy status to sulfonamides; Z79.899 Other long term (current) drug therapy
CPT/HCPCS: 80053; 82947; 85025; 93005; 93010; 99284-25